=== PATIENT | male | born 1935 | race Caucasian/White ===

== ENCOUNTER 2019-02-16 10:08 | Emergency (ER) | payer MEDICARE ==
--- NOTE | 2019-02-16 11:21 | RAD ---
TWO VIEWS CHEST: DATE: 02/16/2019. PROVIDED CLINICAL HISTORY: Dyspnea. FINDINGS: Comparison 03/02/2015. Cardiac and mediastinal silhouette is unchanged in appearance. Interval median sternotomy changes. No focal consolidation, pleural fluid, or pneumothorax apparent. IMPRESSION: No evidence for an acute cardiopulmonary process. POS: OFF
== END 2019-02-16 11:20 | disposition home or self-care (01) ==
LOC: MADERS 10:08
DX: J06.9 Acute upper respiratory infection, unspecified (principal); E11.9 Type 2 diabetes mellitus without complications; I25.10 Atherosclerotic heart disease of native coronary artery without angina pectoris; I25.2 Old myocardial infarction; I10 Essential (primary) hypertension; Z87.891 Personal history of nicotine dependence
CPT/HCPCS: 71046; 87804

== ENCOUNTER 2023-03-28 12:20 | Emergency (ER) | payer OTHER, MEDICARE ==
[2023-03-28] MEDS ORDERED: HYDROcodone/Acetaminophen 5/325 mg Tablet ONE ×2 (12:52→15:54)
== END 2023-03-28 16:36 | disposition short-term general hospital (02) ==
LOC: MADERS 12:20
DX: S72.002A Fracture of unspecified part of neck of left femur, initial encounter for closed fracture (principal); E11.9 Type 2 diabetes mellitus without complications; I25.10 Atherosclerotic heart disease of native coronary artery without angina pectoris; I10 Essential (primary) hypertension; Z87.891 Personal history of nicotine dependence; W01.0XXA Fall on same level from slipping, tripping and stumbling without subsequent striking against object, initial encounter; Z79.01 Long term (current) use of anticoagulants

== ENCOUNTER 2023-09-01 09:45 | Emergency (ER) | payer MEDICARE ==
[2023-09-01] MEDS ORDERED: methylPREDNISolone Sod Succ/PF 125 MG/2 ML VIAL ONE (10:25)
== END 2023-09-01 11:20 | disposition home or self-care (01) ==
LOC: MADERS 09:45
DX: M10.9 Gout, unspecified (principal); E11.9 Type 2 diabetes mellitus without complications; I25.10 Atherosclerotic heart disease of native coronary artery without angina pectoris; I10 Essential (primary) hypertension; E78.5 Hyperlipidemia, unspecified; K21.9 Gastro-esophageal reflux disease without esophagitis; Z87.891 Personal history of nicotine dependence; Z79.899 Other long term (current) drug therapy
CPT/HCPCS: 36415; 84550; 96372; 99283; J2930

== ENCOUNTER 2023-09-21 09:32 | Emergency (ER) | payer MEDICARE ==
[2023-09-21] MEDS ORDERED: methylPREDNISolone Sod Succ/PF 125 MG/2 ML VIAL ONE (09:55)
== END 2023-09-21 10:27 | disposition home or self-care (01) ==
LOC: MADERS 09:32
DX: M10.9 Gout, unspecified (principal); E11.9 Type 2 diabetes mellitus without complications; I25.10 Atherosclerotic heart disease of native coronary artery without angina pectoris; I25.2 Old myocardial infarction; I10 Essential (primary) hypertension; I48.91 Unspecified atrial fibrillation; D64.9 Anemia, unspecified; E78.5 Hyperlipidemia, unspecified; Z95.5 Presence of coronary angioplasty implant and graft; Z87.891 Personal history of nicotine dependence; Z79.01 Long term (current) use of anticoagulants; Z79.899 Other long term (current) drug therapy
CPT/HCPCS: 96372; 99283; J2930

== ENCOUNTER 2023-10-02 11:23 | Emergency (ER) | payer MEDICARE ==
[2023-10-02] MEDS ORDERED: methylPREDNISolone Sod Succ/PF 125 MG/2 ML VIAL ONE (11:50)
== END 2023-10-02 12:09 | disposition home or self-care (01) ==
LOC: MADERS 11:23
DX: M10.9 Gout, unspecified (principal); E11.9 Type 2 diabetes mellitus without complications; I25.10 Atherosclerotic heart disease of native coronary artery without angina pectoris; I10 Essential (primary) hypertension; E78.5 Hyperlipidemia, unspecified; K21.9 Gastro-esophageal reflux disease without esophagitis; Z87.891 Personal history of nicotine dependence; Z79.899 Other long term (current) drug therapy
CPT/HCPCS: 96372; 99283; J2930

== ENCOUNTER 2024-01-17 10:26 | Emergency (ER) | payer MEDICARE ==
[2024-01-17] MEDS ORDERED: methylPREDNISolone Sod Succ/PF 125 MG/2 ML VIAL ONE (10:56)
== END 2024-01-17 11:14 | disposition home or self-care (01) ==
LOC: MADERS 10:26
DX: M10.021 Idiopathic gout, right elbow (principal); M25.521 Pain in right elbow; E11.9 Type 2 diabetes mellitus without complications; I25.10 Atherosclerotic heart disease of native coronary artery without angina pectoris; I25.2 Old myocardial infarction; I10 Essential (primary) hypertension; I48.20 Chronic atrial fibrillation, unspecified; E78.5 Hyperlipidemia, unspecified; Z79.01 Long term (current) use of anticoagulants; Z79.899 Other long term (current) drug therapy; Z87.891 Personal history of nicotine dependence
CPT/HCPCS: 96372; 99283; J2930

== ENCOUNTER 2024-04-14 15:06 | Emergency (ER) | payer BC, MEDICARE ==
[2024-04-14] MEDS ORDERED: methylPREDNISolone Sod Succ/PF 125 MG/2 ML VIAL ONE (15:38)
== END 2024-04-14 15:44 | disposition home or self-care (01) ==
LOC: MADERS 15:06
DX: M10.9 Gout, unspecified (principal); E78.5 Hyperlipidemia, unspecified; I10 Essential (primary) hypertension; Z79.899 Other long term (current) drug therapy; Z79.01 Long term (current) use of anticoagulants; Z87.891 Personal history of nicotine dependence
CPT/HCPCS: 96372; 99283; J2930

== ENCOUNTER 2024-05-15 08:12 | Emergency (ER) | payer MEDICARE ==
[2024-05-15] MEDS ORDERED: methylPREDNISolone Sod Succ/PF 125 MG/2 ML VIAL ONE ×2 (08:48→08:49)
== END 2024-05-15 09:15 | disposition home or self-care (01) ==
LOC: MADERS 08:12
DX: M10.9 Gout, unspecified (principal); I11.0 Hypertensive heart disease with heart failure; I50.9 Heart failure, unspecified; E11.9 Type 2 diabetes mellitus without complications; E78.5 Hyperlipidemia, unspecified; Z87.891 Personal history of nicotine dependence
CPT/HCPCS: 96372; 99283; J2930

== ENCOUNTER 2024-05-22 15:05 | Emergency (ER) | payer MEDICARE ==
[2024-05-22] MEDS ORDERED: Aspirin Chewable 81 MG TAB ONE (15:20)
[2024-05-22] MEDS ORDERED: Nitroglycerin 0.4 MG TAB 1 EACH ONE (15:20)
[2024-05-22 15:34] LABS: #Basophils 0.1 thou/uL (0.0-0.2); #Eosinphils 0.2 thou/uL (0.0-0.7); #Monocytes 1.1 thou/uL (0.11-0.59); #Neutrophils 8.1 thou/uL (1.40-6.50); %Basophils 0.5 % (0.0-1.0); %Eosinophils 1.9 % (0.0-10.0); %Lymphocytes 17.1 % (21.0-51.0); %Monocytes 9.4 % (0.0-10.0); Hematocrit 41.2 % (42.0-52.0); Hemoglobin 12.9 g/dL (14.0-18.0); Mean Corpuscular HGB CONC 31.4 g/dL (32.0-36.0); Mean Corpuscular Hemoglobin 29.7 pg (27.0-31.0); Mean Corpuscular Volume 94.6 fl (78.0-98.0); Mean Platelet Volume 6.1 fL (7.4-10.4); Platelet Count 304 10x3/uL (130-400); RBC Distribution Width 12.9 % (11.5-14.5); Red Blood Cell (RBC) Count 4.36 mill/uL (4.70-6.10); White Blood Cell (WBC) Count 11.4 10x3/uL (4.8-10.8)
[2024-05-22 15:51] LABS: ALT (SGPT) 10 U/L (8-55); AST (SGOT) 12 U/L (5-34); Albumin 4.1 g/dL (3.4-4.8); Alkaline Phosphatase 108 U/L (40-110); Anion Gap 18 mmol/L (10-20); BUN (Urea Nitrogen) 51 mg/dL (8.4-25.7); Bilirubin, Total 0.9 mg/dL (0.2-1.2); Calc. Creatinine Clearance 0 mL/min (70-130); Calcium 9.2 mg/dL (7.8-10.44); Carbon Dioxide 18 mmol/L (23-31); Chloride 103 mmol/L (98-107); Estimated GFR 17; Globulin 3.3 g/dL (2.4-3.5); Glucose 268 mg/dL (83-110); INR-International Normal Ratio 1.2; Lipase 45 U/L (8-78); Potassium 4.4 mmol/L (3.5-5.1); Protein, Total 7.4 g/dL (5.8-8.1); Sodium 135 mmol/L (136-145)
[2024-05-22 15:52] LABS: PTT 31.1 sec (22.9-36.1); Troponin I 0.031 ng/mL (< 0.028)
[2024-05-22] MEDS ORDERED: Morphine 2 MG/ML VIAL ONE ×3 (15:52→16:32)
[2024-05-22] MEDS ORDERED: Sodium Chloride 0.9% 500 ML ONE ×2 (15:53→22:42)
[2024-05-22] MEDS ORDERED: Morphine 4 MG/ML VIAL ONE ×2 (17:48→22:42)
[2024-05-22 19:22] LABS: Troponin I 0.032 ng/mL (< 0.028)
[2024-05-22 22:20] LABS: Troponin I 0.035 ng/mL (< 0.028)
[2024-05-22] MEDS ORDERED: Orphenadrine Citrate 60 MG/2 ML VIAL ONE (23:45)
[2024-05-23 01:24] LABS: Troponin I 0.035 ng/mL (< 0.028)
== END 2024-05-23 01:48 | disposition short-term general hospital (02) ==
LOC: MADERS 15:05
DX: I25.110 Atherosclerotic heart disease of native coronary artery with unstable angina pectoris (principal); R10.30 Lower abdominal pain, unspecified; R91.8 Other nonspecific abnormal finding of lung field; E78.5 Hyperlipidemia, unspecified; E11.22 Type 2 diabetes mellitus with diabetic chronic kidney disease; N18.9 Chronic kidney disease, unspecified; I13.0 Hypertensive heart and chronic kidney disease with heart failure and stage 1 through stage 4 chronic kidney disease, or unspecified chronic kidney disease; I50.9 Heart failure, unspecified; I48.91 Unspecified atrial fibrillation; D64.9 Anemia, unspecified; E78.00 Pure hypercholesterolemia, unspecified; Z79.899 Other long term (current) drug therapy; Z79.01 Long term (current) use of anticoagulants; Z95.1 Presence of aortocoronary bypass graft
CPT/HCPCS: 71045; 80053; 82550; 83690; 83880; 84484 ×2; 85025; 85610; 85730; 93005; 94760; 96361; 96374; 96375; 96376; 99285; J2270; J2272; J2360; J7030; 36415

== ENCOUNTER 2024-06-09 14:19 | Outpatient (CLI) | payer MEDICARE, BC | END 2024-06-09 14:20 | disposition home or self-care (01) | LOC: MADRAD 14:19 | PROVIDERS: ATTEND Family Medicine | DX: Z09 Encounter for follow-up examination after completed treatment for conditions other than malignant neoplasm (principal); J90 Pleural effusion, not elsewhere classified | CPT/HCPCS: 71046 ==

== ENCOUNTER 2024-08-31 11:49 | Emergency (ER) | payer MEDICARE ==
[2024-08-31] MEDS ORDERED: methylPREDNISolone Sod Succ/PF 125 MG/2 ML VIAL ONE (12:35)
== END 2024-08-31 12:43 | disposition home or self-care (01) ==
LOC: MADERS 11:49
DX: M10.9 Gout, unspecified (principal); I25.10 Atherosclerotic heart disease of native coronary artery without angina pectoris; I25.2 Old myocardial infarction; E11.9 Type 2 diabetes mellitus without complications; I11.0 Hypertensive heart disease with heart failure; I50.9 Heart failure, unspecified; I48.20 Chronic atrial fibrillation, unspecified; K21.9 Gastro-esophageal reflux disease without esophagitis; E78.2 Mixed hyperlipidemia; Z79.01 Long term (current) use of anticoagulants; Z79.84 Long term (current) use of oral hypoglycemic drugs; Z79.02 Long term (current) use of antithrombotics/antiplatelets; Z79.899 Other long term (current) drug therapy; Z87.891 Personal history of nicotine dependence
CPT/HCPCS: 96372; 99283; J2919